=== PATIENT | male | born 1995 | race American Indian/Alaskan Native ===

== ENCOUNTER 2018-12-29 02:27 | Emergency (ER) | payer OTHER ==
[2018-12-29 02:31] VITALS: BP 142/87
[2018-12-29] MEDS ORDERED: FUL-GLO OP ONE (03:41)
[2018-12-29] MEDS ORDERED: TETRACAINE 0.5% OU ONE (03:42)
[2018-12-29] MEDS ORDERED: BOOSTRIX IM ONE (03:42)
[2018-12-29] MEDS ORDERED: IBUPROFEN PO ONE (03:43)
--- NOTE | 2018-12-29 03:46 | Emergency Department Report ---
Eye Injury/Foreign Body - HPI Duration: 1 Day Eye Location: Right Tetanus Status: Not up to Date Eye Symptoms: Eye Pain: Yes, Blurred Vision: No, Eye Redness: Yes, Grinding/Hammering Metal: Yes, Used Eye Protection: No, Contact Lens Use: No, Recalls Injury: Yes, Photophobia: Yes ED Review of Systems ROS: Stated complaint: SOMETHING IN EYE Other details as noted in HPI Constitutional: denies: chills, fever Eyes: eye pain, eye discharge. denies: vision change ENT: denies: ear pain, throat pain Respiratory: denies: cough, shortness of breath, wheezing Cardiovascular: denies: chest pain, palpitations Endocrine: no symptoms reported Gastrointestinal: denies: abdominal pain, nausea, diarrhea Genitourinary: denies: urgency, dysuria Musculoskeletal: denies: back pain, joint swelling, arthralgia Skin: denies: rash, lesions Neurological: denies: headache, weakness, paresthesias Psychiatric: denies: anxiety, depression Hematological/Lymphatic: denies: easy bleeding, easy bruising ED Past Medical Hx - Past Medical History Previous Medical History?: No - Surgical History Additional Surgical History: hernia repair - Social History Smoking Status: Never Smoker Substance Use Type: None - Medications Home Medications: Home Medications Medication Instructions Recorded Confirmed Last Taken Type Diclofenac Dr [Voltaren Dr] 75 mg PO Q12H #30 tablet 06/10/15 Unknown Rx traMADol [Ultram 50 MG tab] 50 mg PO Q6HR PRN #20 tablet 06/10/15 Unknown Rx Cetirizine HCl [ZyrTEC] 10 mg PO DAILY #30 capsule 12/29/18 Unknown Rx Ibuprofen 800 mg PO TID PRN #30 tablet 12/29/18 Unknown Rx Polymyxin B Sulf/Trimethoprim 2 drops OP Q4H 10 Days #10 ml 12/29/18 Unknown Rx [Polytrim Eye Drops] Eye Injury Exam - Exam General: Vital signs noted. No distress. Alert and acting appropriately. ED Course Vital Signs 12/29/18 02:29 Temperature 97.2 F L Pulse Rate 71 Respiratory 18 Rate Blood Pressure 142/87 O2 Sat by Pulse 99 Oximetry - Eye Procedure Alcaine Drops Administered: No (tetracaine drops, ) Eye FB Removal: other (arriaga lamp exam fluoracene no foreign body seen.) Eye Irrigated w/ Saline (ccs): 20 Cyclogel 2 Drops Administered: right eye Progress: right eye arriaga lamp exam, anethesis wiht 2 drops of tetracaine, flourascene stain, wood exam small abrasion no foreign oshea noted, pt is perrla eomi, mild conjunctiva erythema no swelling eyelid inverted and swept no foreignbody noted, visual acuity is 20/20 bilat, there is no eye muscle entrampment , pt given wound care instructions verbalized agreement and understanding of discharge plan. symptoms are relieved to 0/10 pain /discomfort. ED Medical Decision Making - Medical Decision Making conjunctivitis right eye, small corneal abrasion , plan, polytrim, tetanus given in ed,, ibuprofen, zyrtec pt will follow up with ophthalmology tomorrow. Critical care attestation.: If time is entered above; I have spent that time in minutes in the direct care of this critically ill patient, excluding procedure time. ED Disposition Clinical Impression: Conjunctivitis Qualifiers: Conjunctivitis type: acute Acute conjunctivitis type: bacterial Laterality: right Qualified Code(s): H10.31 - Unspecified acute conjunctivitis, right eye Corneal abrasion Qualifiers: Encounter type: initial encounter Laterality: right Qualified Code(s): S05.01XA - Injury of conjunctiva and corneal abrasion without foreign body, right eye, initial encounter Disposition: TO HOME OR SELFCARE Is pt being admited?: No Does the pt Need Aspirin: No Condition: Stable Instructions: Conjunctivitis (ED), Corneal Abrasion (ED) Prescriptions: Cetirizine HCl [ZyrTEC] 10 mg PO DAILY #30 capsule Ibuprofen 800 mg PO TID PRN #30 tablet PRN Reason: pain Polymyxin B Sulf/Trimethoprim [Polytrim Eye Drops] 2 drops OP Q4H 10 Days #10 ml Referrals: MARK PATIÑO MD [Staff Physician] - 3-5 Days Forms: Work/School Release Form(ED)
== END 2018-12-29 04:06 | disposition home or self-care (01) ==
LOC: ED 02:27
DX: S05.01XA Injury of conjunctiva and corneal abrasion without foreign body, right eye, initial encounter (principal); H10.31 Unspecified acute conjunctivitis, right eye; X58.XXXA Exposure to other specified factors, initial encounter; Y93.89 Activity, other specified; Y92.89 Other specified places as the place of occurrence of the external cause; Y99.8 Other external cause status
CPT/HCPCS: 90471; 90715; 99283

== ENCOUNTER 2020-08-19 10:58 | Emergency (ER) | payer SELFPAY ==
[2020-08-19 11:38] VITALS: BP 131/79
== END 2020-08-19 12:21 | disposition left against medical advice (07) ==
LOC: ED 10:58
DX: Z53.21 Procedure and treatment not carried out due to patient leaving prior to being seen by health care provider (principal)

== ENCOUNTER → 2022-04-11 | Emergency (ER) | payer SELFPAY ==
[2022-04-11 20:34] VITALS: BP 127/72
== END | disposition left against medical advice (07) ==
LOC: ED 17:56
DX: S89.90XA Unspecified injury of unspecified lower leg, initial encounter (principal); Z53.21 Procedure and treatment not carried out due to patient leaving prior to being seen by health care provider; X58.XXXA Exposure to other specified factors, initial encounter; Y93.89 Activity, other specified; Y92.89 Other specified places as the place of occurrence of the external cause; Y99.8 Other external cause status